=== PATIENT | female | born 1985 | race Caucasian/White ===

== ENCOUNTER 2020-02-17 05:15 | Inpatient (IN) | payer OTHER ==
[2020-02-17] MEDS ORDERED: ceFAZolin 2 GM in Premix Bag 1 BAG IV ONE (05:21)
[2020-02-17] MEDS ORDERED: Citric Acid/Sodium Citrate Solution 30 ML Cup PO ONE (05:21)
[2020-02-17] MEDS ORDERED: Sodium Chloride 0.9% 10 ML Syringe FLUSH PRN (05:21)
[2020-02-17] MEDS ORDERED: Sodium Chloride 0.9% 10 ML SDV IV PRN (05:21)
[2020-02-17] MEDS ORDERED: Sodium Chloride 0.9% 2.5 ML Syringe FLUSH PRN (05:21)
[2020-02-17] MEDS ORDERED: Oxytocin/0.9 % Sodium Chloride 30 UNIT/500 ML BAG IV SCH (05:30)
[2020-02-17] MEDS: Lactated Ringers 1,000 ML IV SCH ×2 (06:05→06:39)
--- NOTE | 2020-02-17 07:25 | PCM.PREANE ---
Preanesthetic Assessment - Anesthesia/Transfusion/Family Hx Anesthesia History: Prior Anesthesia Without Reaction Family History of Anesthesia Reaction: No Transfusion History: No Prior Transfusion(s) Intubation History: Unknown - Review of Systems General: No Symptoms Pulmonary: No Symptoms Cardiovascular: No Symptoms Gastrointestinal: No Symptoms Neurological: No Symptoms Other: Reports: None - Physical Assessment Height: 5 ft 6 in Weight: 120.202 kg ASA Class: 2 Mental Status: Alert & Oriented x3 Airway Class: Mallampati = 1 Dentition: Reports: Normal Dentition Thyro-Mental Finger Breadths: 3 Mouth Opening Finger Breadths: 3 ROM/Head Extension: Full Lungs: Clear to Auscultation, Normal Respiratory Effort Cardiovascular: Regular Rate, Regular Rhythm - Lab Values: Laboratory Last Values WBC 11.07 K/uL (4.0-11.0) H 02/17/20 06:00 RBC 4.12 M/uL (4.30-5.90) L 02/17/20 06:00 Hgb 11.1 g/dL (12.0-16.0) L 02/17/20 06:00 Hct 34.7 % (36.0-46.0) L 02/17/20 06:00 MCV 84.2 fL (80.0-98.0) 02/17/20 06:00 MCH 26.9 pg (27.0-32.0) L 02/17/20 06:00 MCHC 32.0 g/dL (31.0-37.0) 02/17/20 06:00 RDW Std Deviation 41.9 fl (28.0-62.0) 02/17/20 06:00 RDW Coeff of Marline 14 % (11.0-15.0) 02/17/20 06:00 Plt Count 354 K/uL (150-400) 02/17/20 06:00 MPV 9.40 fL (7.40-12.00) 02/17/20 06:00 Nucleated RBC % 0.0 /100WBC 02/17/20 06:00 Nucleated RBCs # 0 K/uL 02/17/20 06:00 SARS Virus RNA (PCR) NEGATIVE (NEGATIVE) 02/15/20 09:30 Blood Type A NEGATIVE 02/15/20 09:35 Antibody Screen NEGATIVE 02/15/20 09:35 - Allergies Allergies/Adverse Reactions: Allergies Allergy/AdvReac Type Severity Reaction Status Date / Time avocado Allergy scratchy Verified 02/15/20 13:13 throat banana Allergy scratchy Verified 02/15/20 13:13 throat broccoli Allergy scratchy Verified 02/15/20 13:13 throat latex Allergy due to Verified 02/15/20 13:13 food allergies zelalem Allergy scratchy Verified 02/15/20 13:13 throat pumpkin seeds Allergy scratchy Uncoded 02/15/20 13:13 throat - Blood Blood Available: No - Anesthesia Plan Pre-Op Medication Ordered: None - Acknowledgements Anesthesia Type Planned: Spinal (general anesthesia back up plan) Pt an Appropriate Candidate for the Planned Anesthesia: Yes Alternatives and Risks of Anesthesia Discussed w Pt/Guardian: Yes Pt/Guardian Understands and Agrees with Anesthesia Plan: Yes PreAnesthesia Questionnaire HEENT History: Reports: Other (See Below) Other HEENT History: wears glasses Cardiovascular History: Reports: None Respiratory History: Reports: None Gastrointestinal History: Reports: Pancreatitis, Other (See Below) Other Gastrointestinal History: heartburn with Genitourinary History: Reports: None IMPLEMENT MECHANIC History: Reports: Ectopic , Musculoskeletal History: Reports: Other (See Below) Other Musculoskeletal History: herniated lumbar disc, goes to chiropractor for this Neurological History: Reports: None Psychiatric History: Reports: Anxiety, Depression Endocrine/Metabolic History: Reports: Diabetes, Gestational, Obesity/BMI 30+ Hematologic History: Reports: None Immunologic History: Reports: None Oncologic (Cancer) History: Reports: None Dermatologic History: Reports: None - Infectious Disease History Infectious Disease History: Reports: Chicken Pox - Past Surgical History Head Surgeries/Procedures: Reports: None HEENT Surgical History: Reports: Adenoidectomy, Tonsillectomy Cardiovascular Surgical History: Reports: None Respiratory Surgical History: Reports: None GI Surgical History: Reports: Cholecystectomy Female Surgical History: Reports: Section, Other (See Below) Other Female Surgeries/Procedures: laparoscopy for ectopic Endocrine Surgical History: Reports: None Neurological Surgical History: Reports: None Musculoskeletal Surgical History: Reports: None Oncologic Surgical History: Reports: None Dermatological Surgical History: Reports: None - SUBSTANCE USE Smoking Status *Q: Former Smoker Tobacco Use Within Last Twelve Months: No Second Hand Smoke Exposure: No Recreational Drug Use History: No - HOME MEDS Home Medications: Home Meds Iron Ps Complex/B12/Folic Acid [Poly-Iron 150 Forte] 1 tab PO DAILY 02/15/20 [ History] Pnv No.95/Ferrous Fum/Folic AC [ Vitamin Tablet] 1 tab PO DAILY [History] - CURRENT (IN HOUSE) MEDS Current Meds: Current Medications Lactated Ringer's (Ringers, Lactated) 1,000 mls @ 500 mls/hr IV BOLUS STEPHY Last Admin: 02/17/20 06:39 Dose: 500 mls/hr Oxytocin/Sodium Chloride (Oxytocin 30 Unit/500 Ml-Ns) 30 unit in 500 mls @ 250 mls/hr IV TITRATE STEPHY Sodium Chloride (Saline Flush) 10 ml FLUSH ASDIRECTED PRN PRN Reason: Keep Vein Open Sodium Chloride (Saline Flush) 2.5 ml FLUSH ASDIRECTED PRN PRN Reason: Keep Vein Open Sodium Chloride (Normal Saline) 10 ml IV ASDIRECTED PRN PRN Reason: IV Use Discontinued Medications Citric Acid/Sodium Citrate (Bicitra Solution) 30 ml PO ONETIME ONE Stop: 02/17/20 05:22 Cefazolin Sodium/Dextrose 2 gm (/ Premix) 50 mls @ 100 mls/hr IV ONETIME ONE Stop: 02/17/20 05:50
[2020-02-17] MEDS ORDERED: Scopolamine 1.5 MG Transdermal Patch ONE (07:26)
[2020-02-17] MEDS ORDERED: Morphine PF 10 MG/10 ML SDV ONE (07:27)
[2020-02-17] MEDS ORDERED: ceFAZolin/Dextrose,Iso-Osmotic 2 GM/50 ML Duplex Bag IV ONE (07:34)
[2020-02-17] MEDS ORDERED: Octyl 2-Cyanoacrylate 1 Tube ONE (07:46)
[2020-02-17] MEDS ORDERED: Oxytocin 10 Units/1 ML SDV ONE (08:42)
[2020-02-17] MEDS ORDERED: Ondansetron 4 MG/2 ML SDV ONE (08:42)
[2020-02-17] MEDS ORDERED: Naloxone 0.4 MG/ML Syringe IVPUSH PRN (08:58)
[2020-02-17] MEDS ORDERED: Ondansetron 4 MG/2 ML SDV IVPUSH PRN ×2 (08:58→09:08)
[2020-02-17] MEDS ORDERED: Acetaminophen/oxyCODONE 325-5 MG Tab PO PRN ×2 (08:58→09:08)
[2020-02-17] MEDS ORDERED: Nalbuphine 10 MG/1 ML Vial IVPUSH PRN (08:58)
[2020-02-17] MEDS ORDERED: fentaNYL 100 MCG/2 ML SDV IVPUSH PRN (08:58)
[2020-02-17] MEDS ORDERED: diphenhydrAMINE 50 MG/ML SDV IVPUSH PRN ×2 (08:58→09:08)
--- NOTE | 2020-02-17 09:07 | PCM.OPNOTE ---
- General Post-Op/Procedure Note Date of Surgery/Procedure: 02/17/20 Operative Procedure(s): repeat low transverse Findings: Liveborn male 99 weight 3860 grams, lower uterine segment with window ( with fingers), normal appearing tubes and ovaries. Pre Op Diagnosis: 39 weeks intrauterine pregnancyk, . Post-Op Diagnosis: Same Anesthesia Technique: Spinal Primary Surgeon: Sowmya Siu Anesthesia Provider: Anay Melendez Pin Maker: Josefa Kwan Pathology: none Fluid Replacement, Intraop: 2,000 Output, Urine Amount: 200 EBL in mLs: 300 Complications: None Known Condition: Good
[2020-02-17] MEDS ORDERED: Ketorolac 30 MG/ML SDV ONE (09:08)
[2020-02-17] MEDS ORDERED: Methylergonovine 0.2 MG/1 ML Amp IM PRN (09:08)
[2020-02-17] MEDS ORDERED: Misoprostol 200 MCG Tab RECTAL PRN (09:08)
[2020-02-17] MEDS ORDERED: Oxytocin 10 Units/1 ML SDV IM PRN (09:08)
[2020-02-17] MEDS ORDERED: Bisacodyl 10 MG Supp RECTAL PRN (09:08)
[2020-02-17] MEDS ORDERED: Lanolin 100% Cream 7 GM Tube TOP PRN (09:08)
[2020-02-17] MEDS ORDERED: Tranexamic Acid 1,000 MG in Sodium Chloride 0.9% 100 ML IV PRN (09:08)
[2020-02-17] MEDS ORDERED: Oxytocin/Lactated Ringers 30 UNIT/500 ML BAG IV SCH (09:15)
[2020-02-17] MEDS ORDERED: Lactated Ringers 1,000 ML IV SCH (09:15)
--- NOTE | 2020-02-17 10:22 | PCM.POSTAN ---
POST ANESTHESIA ASSESSMENT - MENTAL STATUS Mental Status: Alert, Oriented - RESPIRATORY Respiratory Status: Respiratory Rate WNL, Airway Patent, O2 Saturation Stable - CARDIOVASCULAR CV Status: Pulse Rate WNL, Blood Pressure Stable - GASTROINTESTINAL GI Status: No Symptoms - PAIN Pain Score: 0 - POST OP HYDRATION Hydration Status: Adequate & Stable - OBSERVATIONS Free Text/Narrative:: No apparent anesthesia complications noted. Patient doing well and without concerns.
--- NOTE | 2020-02-17 11:00 | OR ---
SURGEON: Sowmya Siu M.D. DATE OF PROCEDURE: 02/17/2020 PREOPERATIVE DIAGNOSES: A 39-week intrauterine , prior delivery, declines vaginal trial of labor, group B strep negative, renal anomaly, advanced maternal age. POSTOPERATIVE DIAGNOSES: A 39-week intrauterine , prior delivery, declines vaginal trial of labor, group B strep negative, renal anomaly, advanced maternal age, and uterine window. PROCEDURE PERFORMED: Repeat low-transverse section. PRIMARY SURGEON: Sowmya Siu M.D. ANESTHESIA: Spinal. ESTIMATED BLOOD LOSS: 300 mL. FINDINGS: Liveborn male, score of 9 and 9, weighing 3860 g. Upon entry into the abdomen, there was noted to be a window in the lower uterine segment. Tubes and ovaries appear normal. COMPLICATIONS: None known. DISPOSITION: Stable to Recovery. BRIEF HISTORY: This is a 35-year-old female, she has had one prior delivery. She presents at 39 weeks' gestation, having declined vaginal trial of labor. 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 She was seen by Perinatology. There were no concerns about genetic abnormalities, and therefore, routine care was resumed with added weekly assessment of amniotic fluid and biophysical profiles. She presents for repeat delivery with risks discussed including bleeding; infection; injury to bowel, bladder, blood vessels, ureters, or other organs; risk of thromboembolic event; and risk of anesthesia. Understanding all of these risks, she does desire to proceed. DESCRIPTION OF PROCEDURE: With the patient in left tilt position, under adequate spinal analgesia, the abdomen was prepped with chlorhexidine and draped in usual fashion for abdominal surgery. SCDs were in place. Key catheter had been placed and 2 g of Ancef were given preoperatively. After an appropriate time-out was held and the abdomen was appropriately draped, documentation of adequate analgesia was performed. The prior cicatrix was then excised, incision was carried through subcutaneous tissue to the fascia, which was scored transversely in the midline. The fascial incision was extended using curved Agee scissors. The fascia was elevated from the underlying rectus muscle using sharp and blunt dissection. The rectus muscles were in the midline. A finger was used to enter the peritoneal cavity. The Lamin O retractor was placed. The visceral peritoneum over the lower uterine segment was well below the field of dissection, there was a window on the left side of the prior uterine incision, and as I was further developing the bladder flap, the window was apparent and a finger was then entered into the uterine cavity prior to rupture of membranes, and this incision extended very easily bluntly and I extended it slightly using Metzenbaum scissors on the right side. The amniotic membranes were then ruptured. The head was delivered via the uterine cavity. The infant was bulb suctioned by nose and mouth and the remainder of the 's shoulders and body were delivered. The infant was further suctioned, and after 1 minute time period for delayed cord clamping, the cord was doubly clamped and cut. The was handed to Dr. Chambers who was in attendance at delivery. The infant was a liveborn male, scores 9 and 9, weighing 3860 g. Cord blood was collected for cord ABGs as well as routine cord blood sampling. Pitocin was initiated after delivery of the infant to assist with delivery of the placenta which was delivered with fundal massage and manual extraction. The cervix was opened with ring forceps. The uterine incision was carefully closed with a running lock suture of 3-0 Polysorb. I did not feel that I could do an imbricating layer due to the extremely thin lower uterine segment and I did backfill the bladder with 120 mL of sterile formula and there was no evidence of any trauma to the bladder and the bladder was well below the incision. The incision was then inspected and was hemostatic. The tubes and ovaries were inspected and appeared normal. The pericolic gutter and posterior cul-de-sac were cleaned with a wet laparotomy tape. One final inspection was performed to confirm complete hemostasis, which it was, and the rectus muscle and peritoneum were then loosely approximated in midline using a running mattress suture of 0 Polysorb. The posterior aspect of the fascia was carefully inspected and was hemostatic. The fascial incision was closed with a running suture of 0 Polysorb. Subcutaneous tissue was irrigated. Any areas of bleeding that were noted were cauterized. The deep subcutaneous tissue was reapproximated with a running suture of 3-0 plain and the skin was closed with a running subcuticular suture of 3-0 Monocryl followed by Dermabond. Final sponge, needle, and instrument counts were reported as correct. There were no known complications. Mother and baby are in Recovery in good condition. RUTHANN / LILLIE /[id number]
[2020-02-17] MEDS: Ketorolac 30 MG/ML SDV IVPUSH SCH ×3 (15:31→21:33)
[2020-02-17] MEDS: Docusate Sodium 100 MG Cap PO SCH (21:32)
[2020-02-18] MEDS: Ketorolac 30 MG/ML SDV IVPUSH SCH ×3 (03:42→09:08)
--- NOTE | 2020-02-18 06:13 | PCM.PNPP ---
- General Info Date of Service: 02/18/20 Functional Status: Reports: Pain Controlled, Tolerating Diet, Ambulating. Denies: Urinating (catheter still in) - Review of Systems General: Reports: No Symptoms HEENT: Reports: No Symptoms Pulmonary: Reports: No Symptoms Cardiovascular: Reports: No Symptoms Gastrointestinal: Reports: No Symptoms Genitourinary: Reports: No Symptoms Musculoskeletal: Reports: No Symptoms Skin: Reports: No Symptoms Neurological: Reports: No Symptoms Psychiatric: Reports: No Symptoms - General Info Date of Service: 02/18/20 - Patient Data Vital Signs - Most Recent: Last Vital Signs Temp 36.4 C 02/18/20 05:00 Pulse 60 02/18/20 05:00 Resp 18 02/18/20 05:00 BP 110/61 02/18/20 05:00 Pulse Ox 100 02/18/20 05:00 Weight - Most Recent: 120.202 kg I&O - Last 24 Hours: Intake & Output 02/17/20 02/17/20 02/18/20 14:59 22:59 06:59 Intake Total 2000 Output Total 200 400 Balance 1800 -400 Lab Results - Last 24 Hours: Laboratory Results - last 24 hr 02/17/20 02/17/20 02/17/20 Range/Units 06:00 08:25 09:46 WBC 11.07 H (4.0-11.0) K/uL RBC 4.12 L (4.30-5.90) M/uL Hgb 11.1 L (12.0-16.0) g/dL Hct 34.7 L (36.0-46.0) % MCV 84.2 (80.0-98.0) fL MCH 26.9 L (27.0-32.0) pg MCHC 32.0 (31.0-37.0) g/dL RDW Std Deviation 41.9 (28.0-62.0) fl RDW Coeff of Marline 14 (11.0-15.0) % Plt Count 354 (150-400) K/uL MPV 9.40 (7.40-12.00) fL Nucleated RBC % 0.0 /100WBC Nucleated RBCs # 0 K/uL Cord ABG pH 7.331 (7.18-7.38) Cord ABG Base Excess -4 (-10--2) Cord VBG pH 7.388 (7.25-7.45) Cord VBG Base Excess -1 H (-10--2) Antibody Screen NEGATIVE Screen NEGATIVE (NEGATIVE) RhIG Candidate? YES Rhogam Indicated YES, BABY RH POS H Med Orders - Current: Current Medications Bisacodyl (Dulcolax) 10 mg RECTAL ONETIME PRN PRN Reason: Constipation Diphenhydramine HCl (Benadryl) 25 mg IVPUSH Q6H PRN PRN Reason: Itching or Nausea Docusate Sodium (Colace) 100 mg PO BID COUNTS INCLUDE 234 BEDS AT THE [facility] Last Admin: 02/17/20 21:32 Dose: 100 mg Emollient Ointment (Lansinoh Hpa) 0 gm TOP ASDIRECTED PRN PRN Reason: Sore Nipples Fentanyl (Sublimaze) 50 mcg IVPUSH Q1H PRN PRN Reason: Pain (severe 7-10) Lactated Ringer's (Ringers, Lactated) 1,000 mls @ 125 mls/hr IV ASDIRECTED STEPHY Oxytocin/Lactated Ringer's (Pitocin In Lr 30 Units/500 Ml) 30 unit in 500 mls @ 999 mls/hr IV TITRATE COUNTS INCLUDE 234 BEDS AT THE [facility]; Protocol Last Admin: 02/17/20 09:30 Dose: 500 munits/min, 500 mls/hr Tranexamic Acid 1,000 mg/ (Sodium Chloride) 110 mls @ 660 mls/hr IV ONETIME PRN PRN Reason: Bleeding Ibuprofen (Motrin) 800 mg PO Q8H PRN PRN Reason: mild pain or fever Ketorolac Tromethamine (Toradol) 30 mg IVPUSH Q6H COUNTS INCLUDE 234 BEDS AT THE [facility] Stop: 02/18/20 09:16 Last Admin: 02/18/20 03:44 Dose: 30 mg Methylergonovine Maleate (Methergine) 0.2 mg IM ONETIME PRN PRN Reason: Excessive Vaginal Bleeding Misoprostol (Cytotec) 1,000 mcg RECTAL ONETIME PRN PRN Reason: excessive bleeding Nalbuphine HCl (Nubain) 5 mg IVPUSH ASDIRECTED PRN PRN Reason: Itching Last Admin: 02/17/20 12:19 Dose: 5 mg Naloxone HCl (Narcan) 0.1 mg IVPUSH ONETIME PRN PRN Reason: Respiratory Depression Stop: 02/18/20 08:58 Ondansetron HCl (Zofran) 4 mg IVPUSH Q4H PRN PRN Reason: Nausea/Vomiting Oxycodone/Acetaminophen (Percocet 325-5 Mg) 1 tab PO Q4H PRN PRN Reason: Pain (moderate 4-6) Oxycodone/Acetaminophen (Percocet 325-5 Mg) 2 tab PO Q4H PRN PRN Reason: Pain (moderate 4-6) Oxytocin (Pitocin) 10 unit IM ASDIRECTED PRN PRN Reason: Excessive Vaginal Bleeding Discontinued Medications Cefazolin Sodium/Dextrose (Ancef) Confirm Administered Dose 2 gm IV .STK-MED ONE Stop: 02/17/20 07:35 Citric Acid/Sodium Citrate (Bicitra Solution) 30 ml PO ONETIME ONE Stop: 02/17/20 05:22 Diphenhydramine HCl (Benadryl) 25 mg IVPUSH Q4H PRN PRN Reason: Itching Stop: 02/18/20 08:58 Cefazolin Sodium/Dextrose 2 gm (/ Premix) 50 mls @ 100 mls/hr IV ONETIME ONE Stop: 02/17/20 05:50 Lactated Ringer's (Ringers, Lactated) 1,000 mls @ 500 mls/hr IV BOLUS STEPHY Last Admin: 02/17/20 06:39 Dose: 500 mls/hr Oxytocin/Sodium Chloride (Oxytocin 30 Unit/500 Ml-Ns) 30 unit in 500 mls @ 250 mls/hr IV TITRATE STEPHY Ketorolac Tromethamine (Toradol) Confirm Administered Dose 30 mg .ROUTE .STK- MED ONE Stop: 02/17/20 09:09 Morphine Sulfate (Duramorph Pf) Confirm Administered Dose 10 mg .ROUTE .STK-MED ONE Stop: 02/17/20 07:28 Octyl Cyanoacrylate (Dermabond Advance) Confirm Administered Dose 1 applic .ROUTE .STK-MED ONE Stop: 02/17/20 07:47 Ondansetron HCl (Zofran) Confirm Administered Dose 4 mg .ROUTE .STK-MED ONE Stop: 02/17/20 08:43 Ondansetron HCl (Zofran) 4 mg IVPUSH Q6H PRN PRN Reason: Nausea Oxycodone/Acetaminophen (Percocet 325-5 Mg) 2 tab PO Q6H PRN PRN Reason: Pain (moderate 4-6) Oxytocin (Pitocin) Confirm Administered Dose 30 unit .ROUTE .STK-MED ONE Stop: 02/17/20 08:43 Scopolamine (Transderm-Scop) Confirm Administered Dose 1.5 mg .ROUTE .STK-MED ONE Stop: 02/17/20 07:27 Sodium Chloride (Saline Flush) 10 ml FLUSH ASDIRECTED PRN PRN Reason: Keep Vein Open Sodium Chloride (Saline Flush) 2.5 ml FLUSH ASDIRECTED PRN PRN Reason: Keep Vein Open Sodium Chloride (Normal Saline) 10 ml IV ASDIRECTED PRN PRN Reason: IV Use - Interaction Disposition, : in Room with Family Interaction: Holding Infant Feeding: Attempted ; Nursed Fair/Poor Support Person: - Recovery Exam Fundal Tone: Firm Fundal Level: At Umbilicus Fundal Placement: Midline Lochia Amount: Small - Exam General: Alert, Oriented Neck: Supple Lungs: Normal Respiratory Effort GI/Abdominal Exam: Soft, Non-Tender, No Distention Extremities: Non-Tender, No Pedal Edema Skin: Warm, Dry, Intact Wound/Incisions: Dressing Dry and Intact Neurological: No New Focal Deficit - Problem List Review Problem List Initiated/Reviewed/Updated: Yes - My Orders Last 24 Hours: My Active Orders 02/17/20 05:21 Non Stress Test [RC] PER UNIT ROUTINE Up ad Mary [RC] ASDIRECTED Vital Signs [RC] PER UNIT ROUTINE 02/17/20 06:00 RPR (SYPHILIS SERO) W/ RFLX [REF] Routine 02/17/20 09:08 Patient Status [ADT] Routine Ambulate [RC] PER UNIT ROUTINE Antiembolic Devices [RC] PER UNIT ROUTINE Communication Order [RC] PER UNIT ROUTINE Communication Order [RC] PER UNIT ROUTINE Communication Order [RC] Per Unit Routine May Shower [RC] ASDIRECTED Notify Provider Vital Signs [RC] ASDIRECTED RT Incentive Spirometry [RC] Q2HWA Vital Signs [RC] PER UNIT ROUTINE Acetaminophen/oxyCODONE [Percocet 325-5 MG] 1 tab PO Q4H PRN Acetaminophen/oxyCODONE [Percocet 325-5 MG] 2 tab PO Q4H PRN Ibuprofen [Motrin] 800 mg PO Q8H PRN Lanolin [Lansinoh HPA] See Dose Instructions TOP ASDIRECTED PRN Methylergonovine [Methergine] 0.2 mg IM ONETIME PRN Ondansetron [Zofran] 4 mg IVPUSH Q4H PRN Oxytocin [Pitocin] 10 unit IM ASDIRECTED PRN Tranexamic Acid [Cyklokapron] 1,000 mg Sodium Chloride 0.9% [Normal Saline] 100 ml IV ONETIME bisacodyL [Dulcolax] 10 mg RECTAL ONETIME PRN diphenhydrAMINE [Benadryl] 25 mg IVPUSH Q6H PRN miSOPROStoL [Cytotec] 1,000 mcg RECTAL ONETIME PRN Abdominal Binder [OM.PC] Urgent Assess Lochia [WOMSER] Per Unit Routine Assess Uterine Involution [WOMSER] Per Unit Routine Breast Pump [WOMSER] Per Unit Routine Peripheral IV Discontinue [OM.PC] Routine Sequential Compression Device [OM.PC] Per Unit Routine Resuscitation Status Routine 02/17/20 09:09 Notify Provider Intake and Out [RC] ASDIRECTED 02/17/20 09:15 Ketorolac [Toradol] 30 mg IVPUSH Q6H Lactated Ringers [Ringers, Lactated] 1,000 ml IV ASDIRECTED Oxytocin/Lactated Ringers [Pitocin in LR 30 Units/500 ML] 30 unit in 500 ml IV TITRATE 02/17/20 09:46 ANTIBODY SCREEN (KELSEY) [BBK] Routine SCREEN [BBK] Routine RH IMMUNE GLOBULIN [BBK] Routine RHIG WORKUP, [BBK] Routine 02/17/20 21:00 Docusate Sodium [Colace] 100 mg PO BID 02/17/20 Lunch Regular Diet [DIET] 02/18/20 05:11 HEMOGLOBIN/HEMATOCRIT,HH [HEME] Routine - Assessment Assessment:: POD#1 after repeat low transverse . Reviewed operative findings of very thin lower uterine segment. Pain is well controlled, tolerating diet, working on . - Plan Plan:: Continue postoperative care.
--- NOTE | 2020-02-18 07:38 | PCM48HPAN ---
Post Anesthesia Note - EVALUATION WITHIN 48HRS OF ANESTHETIC Vital Signs in Normal Range: Yes Patient Participated in Evaluation: Yes Respiratory Function Stable: Yes Airway Patent: Yes Cardiovascular Function Stable: Yes Hydration Status Stable: Yes Pain Control Satisfactory: Yes Nausea and Vomiting Control Satisfactory: Yes Mental Status Recovered: Yes Vital Signs: Last Vital Signs Temp 36.4 C 02/18/20 05:00 Pulse 60 02/18/20 05:00 Resp 18 02/18/20 05:00 BP 110/61 02/18/20 05:00 Pulse Ox 100 02/18/20 05:00
[2020-02-18] MEDS: Docusate Sodium 100 MG Cap PO SCH ×2 (09:15→21:38)
[2020-02-18] MEDS: Ibuprofen 800 MG Tab PO PRN (16:40)
[2020-02-18] MEDS: Acetaminophen/oxyCODONE 325-5 MG Tab PO PRN (23:08)
[2020-02-19] MEDS: Acetaminophen/oxyCODONE 325-5 MG Tab PO PRN ×3 (05:42→20:05)
--- NOTE | 2020-02-19 08:32 | PCM.PNPP ---
- General Info Date of Service: 02/19/20 Functional Status: Reports: Pain Controlled, Tolerating Diet, Ambulating, Urinating - Review of Systems General: Reports: No Symptoms HEENT: Reports: No Symptoms Pulmonary: Reports: No Symptoms Cardiovascular: Reports: No Symptoms Gastrointestinal: Reports: No Symptoms Genitourinary: Reports: No Symptoms Musculoskeletal: Reports: No Symptoms Skin: Reports: No Symptoms Neurological: Reports: No Symptoms Psychiatric: Reports: No Symptoms - Patient Data Vital Signs - Most Recent: Last Vital Signs Temp 36.0 C L 02/19/20 04:45 Pulse 67 02/18/20 08:00 Resp 17 02/19/20 04:45 BP 110/70 02/19/20 04:45 Pulse Ox 98 02/19/20 04:45 Weight - Most Recent: 120.202 kg I&O - Last 24 Hours: Intake & Output 02/18/20 02/19/20 02/19/20 22:59 06:59 14:59 Intake Total 2 Balance 2 Lab Results - Last 24 Hours: Laboratory Results - last 24 hr 02/17/20 Range/Units 09:46 Antibody Screen NEGATIVE Screen NEGATIVE (NEGATIVE) RhIG Candidate? YES Rhogam Indicated YES, BABY RH POS H Med Orders - Current: Current Medications Bisacodyl (Dulcolax) 10 mg RECTAL ONETIME PRN PRN Reason: Constipation Diphenhydramine HCl (Benadryl) 25 mg IVPUSH Q6H PRN PRN Reason: Itching or Nausea Docusate Sodium (Colace) 100 mg PO BID STEPHY Last Admin: 02/18/20 21:38 Dose: 100 mg Emollient Ointment (Lansinoh Hpa) 0 gm TOP ASDIRECTED PRN PRN Reason: Sore Nipples Fentanyl (Sublimaze) 50 mcg IVPUSH Q1H PRN PRN Reason: Pain (severe 7-10) Lactated Ringer's (Ringers, Lactated) 1,000 mls @ 125 mls/hr IV ASDIRECTED STEPHY Oxytocin/Lactated Ringer's (Pitocin In Lr 30 Units/500 Ml) 30 unit in 500 mls @ 999 mls/hr IV TITRATE STEPHY; Protocol Last Admin: 02/17/20 09:30 Dose: 500 munits/min, 500 mls/hr Tranexamic Acid 1,000 mg/ (Sodium Chloride) 110 mls @ 660 mls/hr IV ONETIME PRN PRN Reason: Bleeding Ibuprofen (Motrin) 800 mg PO Q8H PRN PRN Reason: mild pain or fever Last Admin: 02/18/20 16:40 Dose: 800 mg Methylergonovine Maleate (Methergine) 0.2 mg IM ONETIME PRN PRN Reason: Excessive Vaginal Bleeding Misoprostol (Cytotec) 1,000 mcg RECTAL ONETIME PRN PRN Reason: excessive bleeding Nalbuphine HCl (Nubain) 5 mg IVPUSH ASDIRECTED PRN PRN Reason: Itching Last Admin: 02/17/20 12:19 Dose: 5 mg Ondansetron HCl (Zofran) 4 mg IVPUSH Q4H PRN PRN Reason: Nausea/Vomiting Oxycodone/Acetaminophen (Percocet 325-5 Mg) 1 tab PO Q4H PRN PRN Reason: Pain (moderate 4-6) Last Admin: 02/18/20 18:39 Dose: 1 tab Oxycodone/Acetaminophen (Percocet 325-5 Mg) 2 tab PO Q4H PRN PRN Reason: Pain (moderate 4-6) Last Admin: 02/19/20 05:42 Dose: 2 tab Oxytocin (Pitocin) 10 unit IM ASDIRECTED PRN PRN Reason: Excessive Vaginal Bleeding Discontinued Medications Cefazolin Sodium/Dextrose (Ancef) Confirm Administered Dose 2 gm IV .STK-MED ONE Stop: 02/17/20 07:35 Citric Acid/Sodium Citrate (Bicitra Solution) 30 ml PO ONETIME ONE Stop: 02/17/20 05:22 Diphenhydramine HCl (Benadryl) 25 mg IVPUSH Q4H PRN PRN Reason: Itching Stop: 02/18/20 08:58 Cefazolin Sodium/Dextrose 2 gm (/ Premix) 50 mls @ 100 mls/hr IV ONETIME ONE Stop: 02/17/20 05:50 Lactated Ringer's (Ringers, Lactated) 1,000 mls @ 500 mls/hr IV BOLUS STEPHY Last Admin: 02/17/20 06:39 Dose: 500 mls/hr Oxytocin/Sodium Chloride (Oxytocin 30 Unit/500 Ml-Ns) 30 unit in 500 mls @ 250 mls/hr IV TITRATE STEPHY Ketorolac Tromethamine (Toradol) Confirm Administered Dose 30 mg .ROUTE .STK- MED ONE Stop: 02/17/20 09:09 Ketorolac Tromethamine (Toradol) 30 mg IVPUSH Q6H [facility] Stop: 02/18/20 09:16 Last Admin: 02/18/20 09:08 Dose: 30 mg Morphine Sulfate (Duramorph Pf) Confirm Administered Dose 10 mg .ROUTE .STK-MED ONE Stop: 02/17/20 07:28 Naloxone HCl (Narcan) 0.1 mg IVPUSH ONETIME PRN PRN Reason: Respiratory Depression Stop: 02/18/20 08:58 Octyl Cyanoacrylate (Dermabond Advance) Confirm Administered Dose 1 applic .ROUTE .STK-MED ONE Stop: 02/17/20 07:47 Ondansetron HCl (Zofran) Confirm Administered Dose 4 mg .ROUTE .STK-MED ONE Stop: 02/17/20 08:43 Ondansetron HCl (Zofran) 4 mg IVPUSH Q6H PRN PRN Reason: Nausea Oxycodone/Acetaminophen (Percocet 325-5 Mg) 2 tab PO Q6H PRN PRN Reason: Pain (moderate 4-6) Oxytocin (Pitocin) Confirm Administered Dose 30 unit .ROUTE .STK-MED ONE Stop: 02/17/20 08:43 Scopolamine (Transderm-Scop) Confirm Administered Dose 1.5 mg .ROUTE .STK-MED ONE Stop: 02/17/20 07:27 Sodium Chloride (Saline Flush) 10 ml FLUSH ASDIRECTED PRN PRN Reason: Keep Vein Open Sodium Chloride (Saline Flush) 2.5 ml FLUSH ASDIRECTED PRN PRN Reason: Keep Vein Open Sodium Chloride (Normal Saline) 10 ml IV ASDIRECTED PRN PRN Reason: IV Use - Interaction Disposition, : [place] in Room with Family Interaction: Holding Infant Feeding: Attempted ; Nursed Fair/Poor Support Person: - Recovery Exam Fundal Tone: Firm Fundal Level: At Umbilicus Fundal Placement: Midline Lochia Amount: Scant Lochia Color: Rubra/Red Bladder Status: Voiding Urinary Elimination: Indwelling Catheter - Exam General: Alert, Oriented Neck: Supple Lungs: Normal Respiratory Effort GI/Abdominal Exam: Soft, Non-Tender, No Distention Extremities: Non-Tender, No Pedal Edema Skin: Warm, Dry, Intact Wound/Incisions: Healing Well Psy/Mental Status: Alert, Normal Affect, Normal Mood - Problem List Review Problem List Initiated/Reviewed/Updated: Yes - Assessment Assessment:: POD#2 after repeat low transverse . Stable, minimal lochia, tolerating diet, ambulating. Would like to go home today if baby's bilirubin is acceptable. - Plan Plan:: Dismiss to home, discharge instructions reviewed.
[2020-02-19] MEDS: Docusate Sodium 100 MG Cap PO SCH (09:09)
[2020-02-19] MEDS: Ibuprofen 800 MG Tab PO PRN ×2 (09:09→18:12)
[2020-02-19 19:47] VITALS: BP 134/71; PULSE 76
== END 2020-02-19 20:25 | disposition home or self-care (01) | DRG 788 ==
LOC: MW.OB 05:15
PROVIDERS: ADMIT Obstetrics & Gynecology; ATTEND Obstetrics & Gynecology
PROC: 10D00Z1 Extraction of Products of Conception, Low, Open Approach (ICD-10-PCS; principal; 2020-02-17)
DX: O34.211 Maternal care for low transverse scar from previous cesarean delivery (principal); O24.420 Gestational diabetes mellitus in childbirth, diet controlled; O99.214 Obesity complicating childbirth; E66.9 Obesity, unspecified; Z37.0 Single live birth; Z87.891 Personal history of nicotine dependence; Z3A.39 39 weeks gestation of pregnancy; O35.8XX0 Maternal care for other (suspected) fetal abnormality and damage, not applicable or unspecified
CPT/HCPCS: 01961; 36415; 36430; 59025; 82803; 85014; 85018; 85027; 85460; 86592; 86593; 86850; 86900; 86901; A9270-GY; J0690; J1885; J2270; J2300; J2405; J2590; J2792; J7120; U0002

== ENCOUNTER 2023-03-08 10:07 | Emergency (ER) | payer OTHER ==
[2023-03-08 11:38] VITALS: BP 149/101; PULSE 61
== END 2023-03-08 11:31 | disposition home or self-care (01) ==
LOC: MW.ED 10:07
DX: S00.83XA Contusion of other part of head, initial encounter (principal); E11.9 Type 2 diabetes mellitus without complications; E66.9 Obesity, unspecified; Z91.040 Latex allergy status; Z91.018 Allergy to other foods; W22.8XXA Striking against or struck by other objects, initial encounter
CPT/HCPCS: 70450; 70450-26; 70486; 70486-26; 99283

== ENCOUNTER 2023-05-29 03:29 | Emergency (ER) | payer OTHER ==
[2023-05-29 04:14] VITALS: BP 145/91; PULSE 64
== END 2023-05-29 04:14 | disposition home or self-care (01) ==
LOC: MW.ED 03:29
DX: J01.80 Other acute sinusitis (principal); Z91.040 Latex allergy status; Z91.018 Allergy to other foods; Z91.09 Other allergy status, other than to drugs and biological substances
CPT/HCPCS: 99283